=== PATIENT | female | born 1995 | race Hispanic/Latino ===

== ENCOUNTER 2018-03-28 20:36 | Emergency (ER) | payer OTHER, SELFPAY ==
[2018-03-28 20:54] LABS: Bilirubin Negative (Negative); Blood, Urine Negative (Negative); Clarity CLOUDY (Clear); Glucose, Urine (Dipstick) Negative (Negative); Leukocyte Large (Negative); Nitrite Negative (Negative); Protein, Urine (Dipstick) Negative (Neg-Trace); Specific Gravity, Urine 1.017 (1.002-1.036); Urobilinogen 0.2 mg/dL (0.2-1.0); pH, Urine 6.5 (5.0-9.0)
[2018-03-28 20:56] LABS: RBC/HPF 0-3 HPF (0-3)
[2018-03-28 20:57] LABS: Pathc Cast-AUWi Flag 6.25 (0-2.49); Pregnancy Test - Urine (BHCG) Negative (Negative); Pregu Control Background? CLEAR/WHITE (CLR/WHITE); Pregu Control Bar Appear? YES (CONTROL BAR); Specific Gravity 1.017 (1.002-1.036); Yeast-AUWi Flag 26.6 (0-25.0)
[2018-03-28 21:06] LABS: Bacteria/HPF 2+ HPF (None Seen); Hyaline Casts/LPF NONE SEEN LPF (0-3 Hyaline)
[2018-03-28 21:25] LABS: ALT (SGPT) 95 U/L (8-55); AST (SGOT) 60 U/L (5-34); Albumin 4.3 g/dL (3.5-5.0); Alkaline Phosphatase 107 U/L (40-150); Anion Gap 12 mmol/L (10-20); BUN (Urea Nitrogen) 8 mg/dL (7.0-18.7); Bilirubin, Total 0.7 mg/dL (0.2-1.2); Calc. Creatinine Clearance 0 mL/min (70-130); Calcium 9.3 mg/dL (7.8-10.44); Carbon Dioxide 28 mmol/L (22-29); Chloride 102 mmol/L (98-107); Estimated GFR-MDRD 90; Globulin 3.5 g/dL (2.4-3.5); Glucose 138 mg/dL (70-105); Potassium 3.8 mmol/L (3.5-5.1); Protein, Total 7.8 g/dL (6.0-8.3); Sodium 138 mmol/L (136-145)
[2018-03-28] MEDS ORDERED: Ketorolac Tromethamine 60 MG/2 ML VIAL ONE (21:28)
[2018-03-28 21:35] LABS: Hemoglobin 11.4 g/dL (12.0-16.0); Lymphocytes 56 % (21-51); MDiff Complete? YES; Mean Corpuscular HGB CONC 31.1 g/dL (32.0-36.0); Mean Corpuscular Hemoglobin 22.8 pg (27.0-31.0); Mean Corpuscular Volume 73.2 fL (78.0-98.0); Mean Platelet Volume 10.6 fL (7.4-10.4); Monocytes 2 % (0-10); Neutrophil 42 % (42-75); PLT Morphology Comment Appears Adequate; Platelet Count 332 thou/uL (130-400); RBC Distribution Width 16.1 % (11.5-14.5); Red Blood Cell (RBC) Count 5.01 mill/uL (4.20-5.40); White Blood Cell (WBC) Count 8.4 thou/uL (4.8-10.8)
--- NOTE | 2018-03-28 22:21 | ULT ---
TRANSABDOMINAL AND TRANSVAGINAL PELVIC ULTRASOUND 03/28/18 PROVIDED CLINICAL HISTORY: Left lower quadrant pain. FINDINGS: Uterus measures about 7.9 x 3.1 x 4.3 cm and demonstrates a normal sonographic appearance. Endometria l thickness is about 9 mm. Right ovary measures about 2.7 x 1.8 x 2.2 cm and appears sonographically unremarkable. Left ovary measures about 3 x 2.3 x 2.7 cm and appears sonographically unremarkable. Color doppler and spectral analysis of the ovarian waveforms demonstrates normal flow bilaterally. No evidence for significant free pelvic fluid. IMPRESSION: No evidence for an acute process. POS: [facility]
== END 2018-03-28 22:26 | disposition home or self-care (01) ==
LOC: ERS 20:36
DX: N39.0 Urinary tract infection, site not specified (principal); E28.2 Polycystic ovarian syndrome
CPT/HCPCS: 36415; 76856; 80053; 81003; 81015; 81025; 85025; 96372; J1885

== ENCOUNTER 2018-06-26 00:18 | Emergency (ER) | payer SELFPAY | END 2018-06-26 01:39 | disposition home or self-care (01) | LOC: ERS 00:18 | DX: H60.91 Unspecified otitis externa, right ear (principal); J06.9 Acute upper respiratory infection, unspecified | CPT/HCPCS: 87804; 99283 ==

== ENCOUNTER 2020-02-13 14:06 | Emergency (ER) | payer BC, SELFPAY ==
[2020-02-13] MEDS ORDERED: Clindamycin/D5W 600 mg/50 ml Premix Bag ONE (15:21)
[2020-02-13] MEDS ORDERED: Lidocaine 1% w/Epinephrine 1:100K 20 ML VIAL ONE (15:21)
[2020-02-13] MEDS ORDERED: Ondansetron PF 4 MG/2 ML Vial ONE (15:21)
[2020-02-13] MEDS ORDERED: Morphine 4 MG/ML VIAL ONE (15:21)
[2020-02-13 15:22] LABS: #Lymphocytes 3.4 thou/uL (1.20-3.40); #Monocytes 0.5 thou/uL (0.11-0.59); %Basophils 0.4 % (0.0-1.0); %Eosinophils 0.5 % (0.0-10.0); %Lymphocytes 33.9 % (21.0-51.0); %Monocytes 4.7 % (0.0-10.0); %Neutrophils 60.6 % (42.0-75.0); Hemoglobin 13.3 g/dL (12.0-16.0); Mean Corpuscular HGB CONC 33.2 g/dL (32.0-36.0); Mean Corpuscular Hemoglobin 26.8 pg (27.0-31.0); Mean Corpuscular Volume 80.6 fL (78.0-98.0); Mean Platelet Volume 10.7 fL (7.4-10.4); Platelet Count 260 thou/uL (130-400); RBC Distribution Width 12.8 % (11.5-14.5); Red Blood Cell (RBC) Count 4.96 mill/uL (4.20-5.40)
[2020-02-13 16:13] LABS: ALT (SGPT) 101 U/L (8-55); AST (SGOT) 56 U/L (5-34); Albumin 4.4 g/dL (3.5-5.0); Alkaline Phosphatase 112 U/L (40-110); Anion Gap 16 mmol/L (10-20); BUN (Urea Nitrogen) 7 mg/dL (7.0-18.7); Bilirubin, Total 0.8 mg/dL (0.2-1.2); Calc. Creatinine Clearance 0 mL/min (70-130); Carbon Dioxide 25 mmol/L (22-29); Chloride 98 mmol/L (98-107); Estimated GFR-MDRD 86; Glucose 400 mg/dL (70-105); Potassium 3.9 mmol/L (3.5-5.1); Protein, Total 8.4 g/dL (6.0-8.3); Sodium 135 mmol/L (136-145)
== END 2020-02-13 17:00 | disposition home or self-care (01) ==
LOC: ERS 14:06
DX: L02.31 Cutaneous abscess of buttock (principal); R94.5 Abnormal results of liver function studies; E11.9 Type 2 diabetes mellitus without complications; E28.2 Polycystic ovarian syndrome
CPT/HCPCS: 10061; 80053; 83605; 85025; 87040; 96365; 96375; J2270; J2405; J3490

== ENCOUNTER 2020-02-14 13:07 | Emergency (ER) | payer BC | END 2020-02-14 13:43 | disposition home or self-care (01) | LOC: ERS 13:07 | DX: Z48.817 Encounter for surgical aftercare following surgery on the skin and subcutaneous tissue (principal); E11.9 Type 2 diabetes mellitus without complications | CPT/HCPCS: 99282 ==

== ENCOUNTER 2023-04-21 09:34 | Outpatient (CLI) | payer BC ==
[2023-04-21] MEDS ORDERED: Iopamidol 30 ML ONE (09:52)
== END 2023-04-21 09:35 | disposition home or self-care (01) ==
LOC: RAD 09:34
PROVIDERS: ATTEND Advanced Practice Midwife
DX: Z78.9 Other specified health status (principal)
CPT/HCPCS: 58340; 74740; Q9967

== ENCOUNTER 2024-01-27 22:50 | Emergency (ER) | payer BC ==
[2024-01-27 23:16] LABS: #Basophils Less than 0.03 10x3/uL (0.0-0.2); %Basophils 0.2 % (0.0-1.0); %Eosinophils 0.8 % (0.0-10.0); %Monocytes 6.9 % (0.0-10.0); %Neutrophils 62.3 % (42.0-75.0); Hematocrit 33.5 % (36.0-47.0); Hemoglobin 10.6 g/dL (12.0-16.0); Mean Corpuscular HGB CONC 31.6 g/dL (32.0-36.0); Mean Corpuscular Hemoglobin 26.4 pg (27.0-31.0); Mean Corpuscular Volume 83.5 fL (78.0-98.0); Mean Platelet Volume 11.2 fL (7.4-10.4); Platelet Count 280 10x3/uL (130-400); RBC Distribution Width 13.1 % (11.5-14.5); Red Blood Cell (RBC) Count 4.01 mill/uL (4.20-5.40)
[2024-01-27 23:30] LABS: ALT (SGPT) 7 U/L (8-55); AST (SGOT) 12 U/L (5-34); Albumin 3.1 g/dL (3.5-5.0); Alkaline Phosphatase 85 U/L (40-110); Anion Gap 15 mmol/L (10-20); BUN (Urea Nitrogen) 8 mg/dL (7.0-18.7); Bilirubin, Total 0.5 mg/dL (0.2-1.2); Calc. Creatinine Clearance 0 mL/min (70-130); Calcium 8.8 mg/dL (7.8-10.44); Carbon Dioxide 18 mmol/L (22-29); Chloride 105 mmol/L (98-107); Estimated GFR 118; Globulin 4.2 g/dL (2.4-3.5); Glucose 148 mg/dL (70-105); Potassium 3.8 mmol/L (3.5-5.1); Protein, Total 7.3 g/dL (6.0-8.3); Sodium 134 mmol/L (136-145)
[2024-01-28] MEDS ORDERED: Magnesium 2 GM/50 ML BAG (IN WATER) ONE (00:31)
[2024-01-28] MEDS ORDERED: Acetaminophen 500 MG TAB ONE (00:32)
[2024-01-28 01:31] LABS: Bilirubin Negative (Negative); Blood, Urine Negative (Negative); CAUTI Indications for Culture Dysuria,urgency,freq; Calcium Oxalate Crystals 4+ HPF (None Seen); Clarity Clear (Clear); Glucose, Urine (Dipstick) 300 mg/dL (Negative); Ketone, Urine 10 mg/dL (Negative); Leukocyte Negative Leu/uL (Negative); Mucous/LPF Rare LPF (<2+); Nitrite Negative (Negative); Protein, Urine (Dipstick) 30 mg/dL (Neg-Trace); RBC/HPF 0-3 HPF (0-3); Urobilinogen Normal mg/dL (Less than 2); WBC/HPF 0-3 HPF (0-3)
[2024-01-28 01:32] LABS: Bacteria/HPF 1+ HPF (None Seen)
[2024-01-28 01:33] LABS: Urine Culture Reflex No No
== END 2024-01-28 02:25 | disposition short-term general hospital (02) ==
LOC: ERS 22:50
DX: O13.3 Gestational [pregnancy-induced] hypertension without significant proteinuria, third trimester (principal); Z3A.30 30 weeks gestation of pregnancy; O24.113 Pre-existing type 2 diabetes mellitus, in pregnancy, third trimester
CPT/HCPCS: 80053; 81001; 85025; 93005; 96365; J3475